=== PATIENT | female | born 1980 | race Caucasian/White ===

== ENCOUNTER 2017-03-14 12:16 | Emergency (ER) | payer BC ==
--- NOTE | 2017-03-14 12:30 | EDM.PDOC ---
ED HPI GENERAL MEDICAL PROBLEM - General Chief Complaint: Genitourinary Problem Stated Complaint: RT SIDED PAIN Time Seen by Provider: 03/14/17 12:20 Source of Information: Reports: Patient History Limitations: Reports: No Limitations - History of Present Illness INITIAL COMMENTS - FREE TEXT/NARRATIVE: 36 yo female presents with R low back/flank pain and RLQ abdominal pain that began abruptly about 30 min prior to arrival. Has nausea without vomiting so far. No visible hematuria. No hx of kidney stones. Is 12 weeks and has not had an US with this . Does have a hx of ovarian cyst. No fever. Here with . Is declining pain meds or nausea meds at this time. Pain is constant, but waxes and wanes. Onset: Today Onset Date: 03/14/17 Onset Time: 11:50 Duration: Minutes: Location: Reports: Abdomen (RLQ), Back (R low back) Quality: Reports: Ache, Stabbing Severity: Moderate Improves with: Reports: None Worsens with: Reports: None Context: Reports: Other (12 weeks preg/hx of ovarian cyst) Associated Symptoms: Reports: Loss of Appetite, Nausea/Vomiting (no vomiting yet.). Denies: Cough, Fever/Chills, Rash, Shortness of Breath Treatments MANAGER APPLE: Reports: Other (see below) (none) Right Abdomen Pain Score (Numeric/FACES): 3 - Related Data Allergies Allergy/AdvReac Type Severity Reaction Status Date / Time amoxicillin Allergy Cannot Verified 03/14/17 13:24 Remember Home Meds: Home Meds Metoclopramide [Reglan] 5 mg PO Q6H 03/14/17 [History] PNV95/Ferrous Fumarate/FA [ Tablet] 1 each PO DAILY 03/14/17 [History] ED ROS GENERAL - Review of Systems Review Of Systems: See Below Constitutional: Reports: No Symptoms, Decreased Appetite. Denies: Fever, Chills HEENT: Reports: No Symptoms Respiratory: Reports: No Symptoms Cardiovascular: Reports: No Symptoms Endocrine: Reports: No Symptoms GI/Abdominal: Reports: Abdominal Pain (RLQ), Anorexia, Decreased Appetite, Nausea. Denies: Black Stool, Bloody Stool, Constipation, Diarrhea, Distension, Hematemesis, Hematochezia, Melena, Vomiting : Reports: Flank Pain (R low) Musculoskeletal: Reports: No Symptoms Skin: Reports: No Symptoms Neurological: Reports: No Symptoms Psychiatric: Reports: No Symptoms Hematologic/Lymphatic: Reports: No Symptoms ED EXAM, GI/ABD - Physical Exam Exam: See Below Exam Limited By: No Limitations General Appearance: Alert, WD/WN, Mild Distress Eyes: Bilateral: Normal Appearance Ears: Normal External Exam, Normal Canal, Hearing Grossly Normal Nose: Normal Inspection, Normal Mucosa, No Blood Throat/Mouth: Normal Inspection, Normal Lips, Normal Teeth, Normal Oropharynx, Normal Voice, No Airway Compromise Head: Atraumatic, Normocephalic Neck: Normal Inspection, Supple, Non-Tender Respiratory/Chest: No Respiratory Distress, Lungs Clear, No Accessory Muscle Use Cardiovascular: Regular Rate, Rhythm, No Edema GI/Abdominal Exam: Soft, Non-Tender, No Distention Back Exam: Normal Inspection. No: CVA Tenderness (R), CVA Tenderness (L) Extremities: Normal Inspection, Normal Range of Motion, Non-Tender, No Pedal Edema Neurological: Alert, Oriented, CN II-XII Intact, Normal Cognition, No Motor/ Sensory Deficits Psychiatric: Normal Affect, Normal Mood Skin Exam: Warm, Dry, Intact, Normal Color, No Rash Lymphatic: No Adenopathy Course - Vital Signs Last Recorded V/S: Last Vital Signs Temp 36.2 C 03/14/17 12:36 Pulse 93 03/14/17 12:36 Resp 18 03/14/17 12:36 BP 117/75 03/14/17 12:36 Pulse Ox 100 03/14/17 12:36 - Orders/Labs/Meds Orders: Active Orders 24 hr Category Date Time Status OB Transvaginal [US] Stat Exams 03/14/17 13:00 Taken Labs: Laboratory Tests 03/14/17 Range/Units 12:49 Urine Color Yellow (YELLOW) Urine Appearance Clear (CLEAR) Urine pH 5.0 (5.0-6.5) Ur Specific [place] 1.020 (1.010-1.025) Urine Protein Negative (NEGATIVE) mg/dL Urine Glucose (UA) Normal (NEGATIVE) mg/dL Urine Ketones Negative (NEGATIVE) mg/dL Urine Occult Blood Negative (NEGATIVE) Urine Nitrite Negative (NEGATIVE) Urine Bilirubin Negative (NEGATIVE) Urine Urobilinogen Normal (NEGATIVE) mg/dL Ur Leukocyte Esterase Small H (NEGATIVE) Urine RBC Not seen (0) Urine WBC 0-5 (0) Urine Bacteria Rare H (NS) Departure - Departure Time of Disposition: 14:35 Disposition: Home, Self-Care 01 Condition: Good Clinical Impression: Pelvic pain during - Discharge Information Referrals: PCP,None [Primary Care Provider] - Forms: ED Department Discharge - My Orders Last 24 Hours: My Active Orders 03/14/17 13:00 OB Transvaginal [US] Stat - Assessment/Plan Last 24 Hours: My Active Orders 03/14/17 13:00 OB Transvaginal [US] Stat
[2017-03-14 13:24] VITALS: BP 117/75
--- NOTE | 2017-03-14 16:32 | US ---
INDICATION: Right lower quadrant pain. OB ULTRASOUND LIMITED, ONE OR MORE FETUS: Utilizing transabdominal probe, a single intrauterine gestation is noted with regular heart rate of 156 BPM. The fetus lies longitudinal, breech presentation at this time, with a normal amount of amniotic fluid. There is what appears to be a large hypoechoic mass posterior to the uterus. This could represent a fibroid. Transvaginal probe ultrasound will be of further diagnostic benefit in that regard and will be utilized. A small fluid collection is noted along the posterior right lateral aspect of the chorion, which may represent a subchorionic hemorrhage of small size. No adnexal mass lesions or free fluid collection was identified otherwise. The right ovary was not seen - transvaginal pelvic ultrasound will be necessary for further evaluation. The left ovary was not well seen, but grossly normal. IMPRESSION: 1. There appears to be an exophytic mass impressing upon the posterior aspect of the uterus, measuring approximately 46 mm in diameter. It may represent a fibroid. Further evaluation with transvaginal probe will be obtained. 2. Probable small subchorionic bleed. 3. Right ovary not seen. Transvaginal probe ultrasound will be useful for further evaluation. 4. Otherwise unremarkable intrauterine gestation with crown rump length compatible with 12 weeks 2 days gestational age. This is compatible with an CARL[facility] EDUARDO by ultrasound of 09/24/2017, which is only 1 day behind the LMP GA CARL[facility] EDUARDO of . The LMP GA was 12 weeks 3 days, only 1 day ahead of the ultrasonic GA. TRANSVAGINAL OB ULTRASOUND: Utilizing transvaginal probe, multiple ultrasonic images were obtained and revealed what likely represents a mostly exophytic fibroid of the posterior wall of the uterus, measuring approximately 48 x 38 mm , which shows significant interior blood flow, especially in the periphery of the lesion. The single intrauterine gestation appears to be viable with a small subchorionic bleed suggested. At the right ovary, there is a possible corpus luteum cyst, measuring approximately 1.7 cm in maximum diameter. The left ovary was not adequately visualized, apparently due to intestinal gas. IMPRESSION: 1. 4.8 cm mostly exophytic probable fibroid along the posterior wall of the uterus. 2. Intrauterine gestation of approximately 12 weeks 2 days gestational age, only 1 day behind the LMP GA, with an CARL[facility] EDUARDO by ultrasound of 09/24/2017. A small subchorionic bleed is noted. Probable corpus luteum cyst at the right ovary. MTDD
== END 2017-03-14 14:48 | disposition home or self-care (01) ==
LOC: FB.ED 12:16
DX: O09.511 Supervision of elderly primigravida, first trimester (principal); R10.2 Pelvic and perineal pain; Z79.899 Other long term (current) drug therapy; Z88.1 Allergy status to other antibiotic agents; Z3A.12 12 weeks gestation of pregnancy
CPT/HCPCS: 76815; 76817; 81001; 99284